=== PATIENT | female | born 1985 | race Asian ===

== ENCOUNTER 2020-01-07 19:01 | Emergency (ER) | payer BC, OTHER ==
[~2020-01-07] VITALS: Ht 157.5 cm; Wt 57.1 kg
[~2020-01-07 19:01] MED LIST: PROMETRIUM
[2020-01-07] MEDS ORDERED: TRAMADOL 50 MG50 MG PO (20:48)
[2020-01-07] MEDS ORDERED: KEFLEX500 M1 PO (20:48)
[2020-01-07 21:13] VITALS: BP 105/57
== END 2020-01-07 21:15 | disposition home or self-care (01) ==
LOC: ER 19:01
DX: S62.621A Displaced fracture of middle phalanx of left index finger, initial encounter for closed fracture (principal); S61.211A Laceration without foreign body of left index finger without damage to nail, initial encounter; W45.8XXA Other foreign body or object entering through skin, initial encounter; Y93.89 Activity, other specified; Y92.89 Other specified places as the place of occurrence of the external cause; Y99.8 Other external cause status